=== PATIENT | female | born 1985 ===

== ENCOUNTER 2017-11-18 20:44 | Emergency (ER) | payer SELFPAY ==
[2017-11-18 21:05] VITALS: BP 115/66
[2017-11-18 21:27] LABS: Basophils % (Auto) 0.6 % (0.0-1.8); Eosinophils # (Auto) 0.2 K/mm3 (0.0-0.4); Eosinophils % (Auto) 2.2 % (0.0-4.3); Hematocrit 36.9 % (30.3-42.9); Hemoglobin 12.7 gm/dl (10.1-14.3); Lymphocytes # (Auto) 3.1 K/mm3 (1.2-5.4); Lymphocytes % (Auto) 43.4 % (13.4-35.0); Mean Corpuscular HGB Conc 34 % (30-34); Mean Corpuscular Hemoglobin 33 pg (28-32); Mean Corpuscular Volume 95 fl (79-97); Monocytes # (Auto) 0.5 K/mm3 (0.0-0.8); Monocytes % (Auto) 6.6 % (0.0-7.3); Platelet Count 224 K/mm3 (140-440); Red Blood Count 3.88 M/mm3 (3.65-5.03); Red Cell Distribution Width 13.2 % (13.2-15.2)
[2017-11-18 21:43] LABS: Alanine Aminotransferase 13 units/L (7-56); Albumin 4.7 g/dL (3.9-5); BUN/Creatinine Ratio 16; Blood Urea Nitrogen 8 mg/dL (7-17); Calcium 9.8 mg/dL (8.4-10.2); Hemolysis Index 6
[2017-11-18 23:08] LABS: Bacteria,Urine 1+ /HPF (Negative); Bilirubin,Urine NEG (Negative); Blood,Urine LG (Negative); Mucus,Urine FEW /HPF; Nitrite,Urine NEG (Negative); Urobilinogen,Urine < 2.0 mg/dL (<2.0)
[2017-11-18 23:10] LABS: Color,Urine Yellow (Yellow)
--- NOTE | 2017-11-19 00:32 | Ultrasound Report ---
FINAL REPORT PROCEDURE: US OB < = 14 WEEKS FETUS TECHNIQUE: Real-time transabdominal sonography of the uterus, placenta, amniotic fluid, adnexa, and fetus was performed with image documentation. Measurements were obtained to determine age/size. M-mode Doppler was used to document heartbeat. CPT 34744 HISTORY: vag bleeding COMPARISON: Transvaginal OB ultrasound also performed today. FINDINGS: Report for this exam was generated using images from both the transabdominal and the transvaginal OB ultrasound both of which were performed today. The uterus is visualized in the midline and appears to be retroverted. No uterine masses are identified. The endometrial stripe appears to measure approximately 1.8 centimeters in thickness. No fluid is seen in the endometrial canal. No gestational sac pole or heartbeat is detected within the uterus. In the right ovary there is a 1.6 centimeter complex cyst visualized with septations. With color Doppler imaging there only a small amount of peripheral flow visualized. The lack of significant increased flow with Doppler imaging would make ectopic unlikely. Right ovary is otherwise unremarkable measuring 2.6 x 2.5 x 3.0 centimeter. Left ovary is unremarkable measuring 2.8 x 1.3 x 2.0 centimeters. IMPRESSION: There is no evidence of intrauterine . The uterus is retroverted otherwise unremarkable. The endometrial stripe is mildly thickened although there is no gestational sac. Small complex cyst right ovary as described. No other abnormalities are identified. Recommend following serial beta HCG units and follow-up pelvic ultrasound if clinically indicated. Ectopic cannot be entirely excluded.
--- NOTE | 2017-11-19 00:33 | Ultrasound Report ---
FINAL REPORT PROCEDURE: US OB TRANSVAGINAL TECHNIQUE: Real-time transvaginal sonography of the uterus, placenta, amniotic fluid, adnexa, and fetus was performed with image documentation. Measurements were obtained to determine age/size. M-mode Doppler was used to document heartbeat. CPT 49114 HISTORY: vag bleeding COMPARISON: Transabdominal OB ultrasound performed earlier today. FINDINGS: Report for this exam was generated using images from both the transabdominal and the transvaginal OB ultrasound both of which were performed today. The uterus is visualized in the midline and appears to be retroverted. No uterine masses are identified. The endometrial stripe appears to measure approximately 1.8 centimeters in thickness. No fluid is seen in the endometrial canal. No gestational sac pole or heartbeat is detected within the uterus. In the right ovary there is a 1.6 centimeter complex cyst visualized with septations. With color Doppler imaging there only a small amount of peripheral flow visualized. The lack of significant increased flow with Doppler imaging would make ectopic unlikely. Right ovary is otherwise unremarkable measuring 2.6 x 2.5 x 3.0 centimeter. Left ovary is unremarkable measuring 2.8 x 1.3 x 2.0 centimeters. IMPRESSION: There is no evidence of intrauterine . The uterus is retroverted otherwise unremarkable. The endometrial stripe is mildly thickened although there is no gestational sac. Small complex cyst right ovary as described. No other abnormalities are identified. Recommend following serial beta HCG units and follow-up pelvic ultrasound if clinically indicated. Ectopic cannot be entirely excluded.
== END 2017-11-19 06:15 | disposition left against medical advice (07) ==
LOC: ED 20:44
DX: Z53.21 Procedure and treatment not carried out due to patient leaving prior to being seen by health care provider (principal)
CPT/HCPCS: 36415; 76801; 76817; 80053; 81001; 84702; 85025